=== PATIENT | male | born 1950 | race Hispanic/Latino ===

== ENCOUNTER 2017-02-06 17:57 | Emergency (ER) | payer MEDICARE, OTHER ==
[2017-02-06] MEDS ORDERED: CHLORHEXIDINE GLUCONATE 4 % 15 ML UD TOP ONE ×2 (18:20→19:34)
[2017-02-06] MEDS ORDERED: LIDOCAINE 1% 10 ML VIAL INJ ONE ×2 (18:20→18:21)
[2017-02-06] MEDS ORDERED: TETANUS,DIPHTHERIA,PERTUSSIS 1 EA SYG IM ONE (18:23)
[2017-02-06] MEDS ORDERED: POVIDONE IODINE 10 % 15 ML UD TOP ONE (18:25)
--- NOTE | 2017-02-06 18:34 | ED.PDOC ---
History of Present Illness - General Source: patient, RN notes reviewed, Vital Signs reviewed Exam Limitations: no limitations - History of Present Illness Initial Comments: Patient was working with a table saw and cut the distal aspect of his 3rd & 4th fingers. Tried to stop the bleeding at home but thought he might need stitches so he came in. Throbbing pain in his middle finger. Timing/Duration: other - ~2 hours ago Severity: moderate Location: hands Improving Factors: immobilization, other - pressure Worsening Factors: nothing Associated Symptoms: tingling <Suly Gore - Last Filed: 02/06/17 18:31> <Shavon Rabago - Last Filed: 02/06/17 21:47> - General Chief Complaint: Laceration Stated Complaint: laceration Time Seen by Provider: 02/06/17 18:07 - History of Present Illness Allergies/Adverse Reactions: Allergies NO KNOWN ALLERGY Allergy (Verified 02/06/17 18:10) Home Medications: Ambulatory Orders Bp Med PO DAILY 02/06/17 Diabetic Med PO DAILY 02/06/17 Sulfamethoxazole-Trimethoprim [Bactrim Ds 800-160 mg] 1 tab PO BID #14 tab 02/06 Review of Systems - Review of Systems Constitutional: States: no symptoms reported Respiratory: States: no symptoms reported Cardiology: States: no symptoms reported Gastrointestinal/Abdominal: States: no symptoms reported Genitourinary: States: no symptoms reported Musculoskeletal: States: no symptoms reported Skin: States: see HPI Neurological: States: tingling. Denies: numbness <Suly Gore - Last Filed: 02/06/17 18:31> Past Medical History (General) - Patient Medical History Hx Stroke: No Hx Congestive Heart Failure: No Hx Hypertension: Yes Hx Diabetes: Yes Hx MRSA: No - Vaccination History Hx Tetanus, Diphtheria Vaccination: Yes - 02/06/17 Hx Influenza Vaccination: Yes - 2015 Hx Pneumococcal Vaccination: Yes - 2013 - Social History Hx Tobacco Use: No <Suly Gore - Last Filed: 02/06/17 18:31> Family Medical History - Family History Father Family History: No Known Living Status: <Suly Gore - Last Filed: 02/06/17 18:31> Physical Exam - Physical Exam General Appearance: Alert, Comfortable, No apparent distress, Well Developed, Well Groomed, Well Hydrated, Well Nourished Cardiovascular/Chest: normal peripheral pulses Extremity: normal range of motion, non-tender, normal inspection Neurologic: no motor/sensory deficits, alert, normal mood/affect, oriented x 3 Skin Exam: warm/dry, normal color Skin Problem Location: upper extremities - Right 3rd & 4th fingers Skin Character: other - 3rd finger: 2 ragged, linear lacerations on pad/distal phalynx, volar aspect. 4th finger: superficial ragged, linear laceration of pad <Suly Gore - Last Filed: 02/06/17 18:31> Progress - Progress Progress: 02/06/17 21:31 Areas on Patient's 3rd right finger that skin and tissue loss occurred were left open to heal by secondary intention. Areas that were able to be sutured were sutured. The area of skin loss on Patient's 4th right finger was left open to heal by secondary intention. Dr. Dickey was consulted. After consulting and sending pictures which were approved by Patient, Dr. Dickey indicated that the areas left open would most likely heal ok, although if not, he may need a revision. - Results/Orders Results/Orders: 02/06/17 02/06/17 02/06/17 18:09 19:47 21:20 Temperature 98.3 F Pulse Rate [ 70 56 L 60 Left Radial] Respiratory 18 18 18 Rate Blood Pressure 138/74 135/84 [Left Arm] O2 Sat by Pulse 99 97 97 Oximetry - EKG/XRAY/CT XRAY: Right fingers - No andriy involvement - Consult/PCP Time Called: 20:32 Consult/PCP: Dr. Dickey Consult Reason/Comments: Discussed injury, sent photos with Patient's consent. Pt. to F/U in 3 days. <Shavon Rabago - Last Filed: 02/06/17 21:47> Procedures - Laceration/Wound Repair Right Finger Wound Length (cm): 1.7 Wound's Depth, Shape: irregular, contused tissue Wound Explored: contaminated Irrigated w/ Saline (cc's): 20 - Cleansed with betadine Betadine Prep?: Yes Wound Debrided: moderate Wound Repaired With: sutures Suture Size/Type: 4:0, prolene Number of Sutures: 3 Layer Closure?: Yes Deep Layer Suture Size/Type: 4:0, vicryl Number Deep Layer Sutures: 4 Sterile Dressing Applied?: Yes Splint Applied?: No Sling Applied?: No - Additional Procedures Progress: Laceration repair: 3rd finger - proximal documented above. 3rd finger - distal: 1.3 cm Layer closure: Vicryl 4.0, 3 sutures; Prolene 4.0, 2 sutures Areas of skin and tissue loss were left open after debridement. <Dustin Rabagotravis Leach - Last Filed: 02/06/17 21:47> Departure <Suly Gore - Last Filed: 02/06/17 18:31> - Departure ICD-10 Supporting Text: Two separate lacerations to right third finger - one proximal 1.7 cm, one distal 1.3 cm, both layer repairs. Laceration to right fourth finger not repaired. Time of Disposition: 21:44 <HimaShavon Leach - Last Filed: 02/06/17 21:47> - Departure Clinical Impression: Laceration of third finger, right Qualifiers: Encounter type: initial encounter Qualifier Code: (S61.214A) Laceration without foreign body of right ring finger without damage to nail, initial encounter Laceration of fourth finger of right hand Qualifiers: Encounter type: initial encounter Qualifier Code: (S61.214A) Laceration without foreign body of right ring finger without damage to nail, initial encounter Disposition: Discharge to Home or Self Care Departure Forms: ED Discharge - Pt. Copy, Patient Portal Self Enrollment Instructions: DI for Laceration Repair -- Finger, How to Care for a Laceration After Repair Referrals: Reed Dickey MD [Active Staff] - 1-5 Days Prescriptions: Sulfamethoxazole-Trimethoprim [Bactrim Ds 800-160 mg] 1 tab PO BID #14 tab Home Medications: Ambulatory Orders Bp Med PO DAILY 02/06/17 Diabetic Med PO DAILY 02/06/17 Sulfamethoxazole-Trimethoprim [Bactrim Ds 800-160 mg] 1 tab PO BID #14 tab 02/06 Additional Instructions: Keep bandage on finger until you follow up with Dr. Dickey. Call Dr. Dickey's office on Wednesday morning and schedule appointment with him. Keep right hand elevated. Follow up in ED if symptoms persist or worsen.
[2017-02-06 19:48] VITALS: O2SAT 97
--- NOTE | 2017-02-06 20:06 | RAD ---
Procedure: XR FINGERS Exam Date: 02/06/2017 Ordering Provider: Suly Gore Clinical Indication: 3rd 4th tips cut with table saw Comparison: None FINDINGS: No acute fracture or dislocation. Soft tissue injury subjacent to the distal phalanx of the third finger. There is no lytic or sclerotic lesion. IMPRESSION: 1. No acute fracture or dislocation of the right third and fourth fingers. 2. Soft tissue injury subjacent to the distal phalanx of the third finger. Electronically signed by: Isaac Vallecillo MD 02/06/2017 8:05 PM CDT
[2017-02-06] MEDS ORDERED: NEOMYCIN-BACITRACIN-POLYMYXIN 0.9 GM UD TOP ONE (21:09)
[2017-02-06] MEDS ORDERED: SULFA/TRIMETH 800/160 (DS) TAB 1 EA TAB PO ONE (21:19)
[2017-02-06 21:29] VITALS: BP 135/84
[2017-02-06] MEDS ORDERED: HYDROCOD/APAP 5/325 (ER DISP) #3 TAB PO ONE (21:47)
[2017-02-06 21:57] VITALS: TEMP 98.7
== END 2017-02-06 21:57 | disposition home or self-care (01) ==
LOC: ER 17:57
DX: S61.212A Laceration without foreign body of right middle finger without damage to nail, initial encounter (principal); S61.214A Laceration without foreign body of right ring finger without damage to nail, initial encounter; I10 Essential (primary) hypertension; E11.9 Type 2 diabetes mellitus without complications; Z23 Encounter for immunization; W29.8XXA Contact with other powered hand tools and household machinery, initial encounter; Y92.9 Unspecified place or not applicable

== ENCOUNTER → 2017-02-23 | Outpatient (CLI) | payer MEDICARE, OTHER | END | disposition home or self-care (01) | LOC: GMAB 11:07 | PROVIDERS: ATTEND Family Medicine | DX: Z12.5 Encounter for screening for malignant neoplasm of prostate (principal); I10 Essential (primary) hypertension | CPT/HCPCS: 84443; G0103 ==

== ENCOUNTER → 2017-03-17 | Outpatient (CLI) | payer MEDICARE, OTHER | END | disposition home or self-care (01) | LOC: GMAB 17:27 | PROVIDERS: ATTEND Family Medicine | DX: D64.9 Anemia, unspecified (principal) ==

== ENCOUNTER → 2017-08-25 | Outpatient (CLI) | payer MEDICARE, OTHER | END | disposition home or self-care (01) | LOC: GMAB 10:55 | PROVIDERS: ATTEND Family Medicine | DX: D50.8 Other iron deficiency anemias (principal) ==

== ENCOUNTER → 2018-02-28 | Outpatient (CLI) | payer MEDICARE, OTHER | LOC: GMAB 11:31 | PROVIDERS: ATTEND Family Medicine | DX: D50.8 Other iron deficiency anemias (principal); I10 Essential (primary) hypertension; Z12.5 Encounter for screening for malignant neoplasm of prostate; E11.9 Type 2 diabetes mellitus without complications; E78.2 Mixed hyperlipidemia | CPT/HCPCS: 82728; 83540; 83550; 84443; 84550; G0103 ==

== ENCOUNTER → 2018-03-01 | Outpatient (CLI) | payer MEDICARE, OTHER | LOC: GMAB 16:52 | PROVIDERS: ATTEND Family Medicine | DX: E83.50 Unspecified disorder of calcium metabolism (principal) ==

== ENCOUNTER → 2019-03-02 | Outpatient (CLI) | payer MEDICARE, OTHER | LOC: GMAE 10:28 | PROVIDERS: ATTEND Family Medicine | DX: D53.9 Nutritional anemia, unspecified (principal); M10.9 Gout, unspecified; Z12.5 Encounter for screening for malignant neoplasm of prostate | CPT/HCPCS: 82728; 83540; 83550; 84550; G0103 ==

== ENCOUNTER → 2019-03-07 | Outpatient (CLI) | payer MEDICARE, OTHER ==
--- NOTE | 2019-03-07 16:10 | US ---
EXAM DESCRIPTION: Aorta: Ultrasound. CLINICAL HISTORY: ENCOUNTER FOR SCREENING FOR OTHER DISORDER COMPARISON: None. TECHNIQUE: Transcutaneous scanning: Two-dimensional and Doppler modes. FINDINGS: Abdominal aorta diameter - Proximal: 2.4 x 2.0 x 1.9 cm. Mid: 1.9 x 1.9 x 1.8 cm. Distal: 2.1 x 1.7 x 1.7 cm. Common Iliac diameter - Right: 10 mm. Left: 9 mm. Other: Atherosclerotic wall changes.. IMPRESSION: No abdominal aortic aneurysm. Atherosclerotic wall changes. Electronically signed by: Samuel Moerno MD 03/07/2019 4:07 PM CDT
== END ==
LOC: US 09:30
PROVIDERS: ATTEND Family Medicine
DX: Z13.89 Encounter for screening for other disorder (principal)

== ENCOUNTER → 2020-03-05 | Outpatient (CLI) | payer MEDICARE, OTHER | LOC: GMAE 11:21 | PROVIDERS: ATTEND Family Medicine | DX: I10 Essential (primary) hypertension (principal); Z12.5 Encounter for screening for malignant neoplasm of prostate; E11.9 Type 2 diabetes mellitus without complications; E78.2 Mixed hyperlipidemia | CPT/HCPCS: 84443; 84550; G0103 ==

== ENCOUNTER → 2020-10-08 | Outpatient (CLI) | payer MEDICARE, OTHER ==
--- NOTE | 2020-10-08 12:37 | MRI ---
EXAM DESCRIPTION: Lumbar Spine w/o Contrast : Magnetic Resonance Imaging. CLINICAL HISTORY: low back pain COMPARISON: MRI scan lumbar spine without contrast December 2007. TECHNIQUE: Multiplanar, multiple standard sequences, non contrast MRI, lumbar spine. FINDINGS: L5-S1: The disc is well visualized on axial T2 series 501, image 3. Minimal disc desiccation and posterior disc space loss. Posterior midline bulge abutting the thecal sac. Hypertrophic changes in the posterior flavum ligaments and facet joints (canal elements). AP canal diameter 8.5 mm. Bulging disc and right facet hypertrophy effacing the right subarticular recess and impinging the descending right S1 nerve. This is progressed since the prior study Mild right foraminal stenosis from disc spur encroachment and encroaching on the nerve. Stable since the prior study. Borderline left foraminal stenosis. L4-L5: Disc desiccation minimal disc space loss. Anterior posterior bulging. 3 mm grade 1 anterolisthesis. Possible deformity left L4 pars interarticularis. Lateral mild foraminal stenosis, right more than left. Moderate hypertrophic changes in the canal elements. AP canal diameter 6 mm. Progression since the prior study. Bilateral effacement of the subarticular recesses with bone-spur abutment of the descending L5 nerves. L3-L4: Disc desiccation and minimal disc space loss. Posterior broad-based bulge. Bilateral hypertrophic changes in the canal elements. AP canal diameter 4.5 mm. Significant progression since the prior study. Moderate narrowing of the right foramen and borderline stenosis of the left foramen. Progression since the prior study. L2-L3: Disc desiccation with disc space maintained. No significant bulge. Minimal hypertrophy of the canal elements. AP canal diameter 10 mm. Mild narrowing of the right foramen and moderate narrowing of the left foramen. Circumscribed hyperintense T1 and T2 hemangioma posterior inferior L2 vertebral body and smaller hemangioma superior L3 vertebral body. L1-L2: Disc desiccation minimal disc space loss. Hypertrophic changes in the canal elements. Mild canal narrowing. Bilateral remaining mild foraminal narrowing. T12-L1: Normal signal in the disc with disc space maintained. No bulging. Canal elements unremarkable. Foramina and canal are patent. Conus terminates at T12-L1. No significant scoliosis. Paravertebral soft tissues mild fatty muscle atrophy.. Distal cord normal signal and caliber. Otherwise normal marrow signal in the remaining vertebral bodies and the posterior elements. Vertebral bodies are not compressed at any level. IMPRESSION: 1. Multiple levels of desiccated discs, spondylolisthesis, hypertrophic changes in the facet joints and posterior flavum ligaments. 2. Mild, multifactorial central canal stenosis L5-S1. Stenosis right subarticular recess and impinging the descending right S1 nerve. Progressed since the prior study. Mild right foraminal stenosis is stable. 3. Grade 1 anterolisthesis L4-L5 with possible deformity left L4 pars interarticularis. Moderate to severe central canal stenosis. Progressed since the prior study. 4. Multifactorial severe central canal stenosis L3-L4 with significant progression since the prior study. Borderline stenosis of the left foramen is progressed since the prior study. Correlate for radiculopathy left L3 nerve. 5. Please refer to FINDINGS for discussion of results at specific disc space levels. Electronically signed by: Samuel Moreno MD 10/08/2020 12:[address] [facility]
== END ==
LOC: MRI 08:48
PROVIDERS: ATTEND Anesthesiology Pain Medicine
DX: M96.1 Postlaminectomy syndrome, not elsewhere classified (principal); M62.830 Muscle spasm of back; G89.4 Chronic pain syndrome; M51.36 Other intervertebral disc degeneration, lumbar region; M43.16 Spondylolisthesis, lumbar region; M48.061 Spinal stenosis, lumbar region without neurogenic claudication; M46.96 Unspecified inflammatory spondylopathy, lumbar region; M24.28 Disorder of ligament, vertebrae; Z79.899 Other long term (current) drug therapy